=== PATIENT | female | born 1985 | race Caucasian/White ===

== ENCOUNTER 2023-12-12 23:38 | Emergency (ER) | payer SELFPAY ==
[~2023-12-12] VITALS: Ht 160 cm; Wt 86.0 kg
[2023-12-12 23:41] VITALS: O2SAT 98
[2023-12-13] MEDS ORDERED: IBUP-2029 MT (01:29)
[2023-12-13 01:33] VITALS: BP 129/56; PULSE 84; RESP 14; TEMP 98.7
== END 2023-12-13 01:38 | disposition home or self-care (01) ==
LOC: ER 23:38
DX: R51.9 Headache, unspecified (principal)
CPT/HCPCS: 99282